=== PATIENT | male | born 1940 | race Hispanic/Latino ===

== ENCOUNTER 2021-01-22 06:36 | Day surgery (SDC) | payer OTHER ==
[2021-01-18 13:03] LABS: BASOPHILS % (AUTO) 0.3 % (0.0-5.0); EOSINOPHILS % (AUTO) 1.1 % (0.0-8.0); HEMATOCRIT 48.2 % (42-54); MEAN CORPUSCULAR HEMOGLOBIN 30.9 pg (27.0-33.0); MEAN CORPUSCULAR HGB CONC 32.4 g/dL (32.0-36.0); MEAN CORPUSCULAR VOLUME 95.4 fL (79-99); MONOCYTES % (AUTO) 8.6 % (3.0-13.0); NEUTROPHILS % (AUTO) 61.8 % (40.0-77.0); PLATELET COUNT (AUTO) 137 K/uL (130-400); RED BLOOD CELL COUNT(AUTO) 5.05 MIL/uL (4.50-6.20); RED CELL DISTRIBUTION WIDTH 12.9 % (11.0-15.5); WHITE BLOOD COUNT (AUTO) 6.7 K/uL (4.8-10.8)
[2021-01-18 13:03] LABS: APPEARANCE,URINE Clear (CLEAR); BILIRUBIN,URINE Negative (NEGATIVE); COLOR,URINE Yellow (YELLOW); GLUCOSE, URINE (UA) Negative (NEGATIVE); KETONES,URINE Negative (NEGATIVE); LEUKOCYTE ESTERASE ,URINE Negative (NEGATIVE); NITRATE,URINE Negative (NEGATIVE); OCCULT BLOOD,URINE Negative (NEGATIVE); PROTEIN,URINE Negative (NEGATIVE)
[2021-01-18 13:08] LABS: CREATININE 0.8 mg/dL (0.5-1.5); POTASSIUM 4.4 mmol/L (3.5-5.1)
[2021-01-21 11:09] VITALS: BP 165/81
[~2021-01-22] VITALS: Ht 165.1 cm; Wt 86.6 kg
[2021-01-22] VITALS (24 sets, daily range): BP systolic 123–197; BP diastolic 65–105
[2021-01-22] MEDS: CEFTRIAXONE 1G VIAL IVP SCH ×2 (06:00→08:20)
[~2021-01-22 06:36] MED LIST: ACET650T9 PO; ASPI-1443 PO; FINA5TAB41 PO; GENTAMICIN 80 MG/NS 100 ML PB 100 ML IV SCH; HYDR-4153 PO; TAMS-1 PO
[2021-01-22] MEDS ORDERED: LACTATED RINGERS 1000ML 1,000 ML IV ONE (07:23)
[2021-01-22] MEDS ORDERED: ATOR20TA65 PO (07:32)
[2021-01-22] MEDS ORDERED: LIDOCAINE PF 100MG/5ML (2%) SYRINGE 5ML ONE (08:17)
[2021-01-22] MEDS ORDERED: DEXAMETHASONE SOD PHOSPHATE 10MG/ML 1ML VIAL ONE (08:17)
[2021-01-22] MEDS ORDERED: SUCCINYLCHOLINE 200MG/10ML SYR ONE (08:17)
[2021-01-22] MEDS ORDERED: GLYCOPYRROLATE 1 MG/5 ML SYRINGE ONE (08:18)
[2021-01-22] MEDS ORDERED: ROCURONIUM 10MG/1ML SYR 10 MG/ML ML ONE (08:18)
[2021-01-22] MEDS ORDERED: NEOSTIGMINE 5MG/5ML SYR IV ONE (08:18)
[2021-01-22] MEDS ORDERED: MIDAZOLAM HCL 1 MG/ML 2ML VIAL ONE (08:18)
[2021-01-22] MEDS ORDERED: FENTANYL CITRATE PF 50 MCG/1 ML 2ML VIAL ONE (08:18)
[2021-01-22] MEDS ORDERED: PROPOFOL 10 MG/ML 20ML VIAL IV ONE (08:18)
[2021-01-22] MEDS ORDERED: MEPERIDINE-PF 25 MG/ML SYG ONE (09:18)
[2021-01-22] MEDS ORDERED: LABETALOL 20MG SYG IV ONE (12:58)
[2021-01-22] MEDS ORDERED: LABETALOL 20MG SYG IV SCH (13:30)
== END 2021-01-22 14:35 | disposition home or self-care (01) ==
LOC: DAH 06:36
PROVIDERS: ATTEND Urology
DX: C61 Malignant neoplasm of prostate (principal); R97.20 Elevated prostate specific antigen [PSA]; Z20.822 Contact with and (suspected) exposure to COVID-19; I25.10 Atherosclerotic heart disease of native coronary artery without angina pectoris; K21.9 Gastro-esophageal reflux disease without esophagitis; I10 Essential (primary) hypertension; E78.5 Hyperlipidemia, unspecified; Z79.899 Other long term (current) drug therapy; Z86.73 Personal history of transient ischemic attack (TIA), and cerebral infarction without residual deficits; Z98.890 Other specified postprocedural states
CPT/HCPCS: 36415; 71045; 76872; 80048; 81003; 85025; 87088; 87635; 88305; 88344; 93005; C1769; C9803; J0330; J0696; J1100; J1580; J2001; J2175; J2250; J2704; J2710; J3010; J3490; J7120